=== PATIENT | male | born 1930 | race Caucasian/White ===

== ENCOUNTER 2018-03-17 10:05 | Emergency (ER) | payer MEDICARE, MEDICAID ==
--- NOTE | 2018-03-17 11:18 | C.PDOC ---
History Of Present Illness [id number] male presents to ED with complaints of new onset hematuria that began last night associated with increased frequency. Denies pelvic pain, nausea , or vomiting. Patient has history of TURP. Patient states he was started with Dr. Hare on cardura 4/5 but was unable to tolerate it. NEW ONSET HEMATURIA SINCE LAST NIGHT. INCR FREQ. DENIES PELVIC PAIN, NV FEVER. HO TURP. PS WAS STARTED ON CARDURA 4/5 BUT UNABLE TO TOLERATE IT. PS DR ANANYA HARE EXAM MILD DIST NONTOXIC ABD +GROSS HEMATURIA REMAIDNER NEG Time Seen by Provider: 03/17/18 10:51 Chief Complaint (Nursing): Male Genitourinary History Per: Patient History/Exam Limitations: no limitations Onset/Duration Of Symptoms: Days (1) Current Symptoms Are (Timing): Still Present Associated Symptoms: Urinary Symptoms. denies: Fever, Chills, Nausea, Vomiting Alleviating Factors: None Recent travel outside of the [place]: No Past Medical History Reviewed: Historical Data, Nursing Documentation, Vital Signs Vital Signs: Last Vital Signs Temp 98.4 F 03/17/18 15:53 Pulse 72 03/17/18 15:53 Resp 20 03/17/18 15:53 BP 116/72 03/17/18 15:53 Pulse Ox 98 03/17/18 15:53 - Medical History PMH: Arthritis, Benign Prostatic Hyperplasia, HTN Surgical History: No Surg Hx Family History: States: Unknown Family Hx - Social History Hx Tobacco Use: No Hx Alcohol Use: No Hx Substance Use: No - Immunization History Hx Tetanus Toxoid Vaccination: No Hx Influenza Vaccination: No Hx Pneumococcal Vaccination: No Review Of Systems Constitutional: Negative for: Fever, Chills Gastrointestinal: Negative for: Nausea, Vomiting Genitourinary: Positive for: Frequency, Hematuria Neurological: Negative for: Weakness, Numbness Physical Exam - Physical Exam Appears: Non-toxic, No Acute Distress Skin: Warm, Dry Eye(s): bilateral: Normal Inspection Oral Mucosa: Moist Chest: Symmetrical, No Tenderness Cardiovascular: Rhythm Regular Gastrointestinal/Abdominal: Soft, No Tenderness, Distention (Mild ), Other ( Positive gross hematuria ) Neurological/Psych: Oriented x3, Normal Speech, Normal Cognition ED Course And Treatment O2 Sat by Pulse Oximetry: 97 (RA) Pulse Ox Interpretation: Normal - Physician Consult Information Time Consulting Physician Contacted: 12:15 Physician Contacted: Diogo Hare Outcome Of Conversation: AWARE OF ER FINDINGS. MARINE CRABT[place] DC Medical Decision Making Medical Decision Making: Ordered Urine culture and Urinalysis. Disposition Counseled Patient/Family Regarding: Studies Performed, Diagnosis, Need For Followup, Rx Given - Disposition Referrals: Diogo Hare MD [Staff Provider] - Disposition: HOME/ ROUTINE Disposition Time: 16:00 Condition: IMPROVED Prescriptions: Cefuroxime Axetil [Cefuroxime] 500 mg PO BID #20 tablet Instructions: Blood in the Urine (Hematuria), Adult (DC) Forms: [employer] (Wolof) Print Language: MALIAN - Clinical Impression Clinical Impression: Hematuria - Scribe Statement The provider has reviewed the documentation as recorded by the Scribmeredith Mike All medical record entries made by the Esteribmeredith were at my direction and personally dictated by me. I have reviewed the chart and agree that the record accurately reflects my personal performance of the history, physical exam, medical decision making, and the department course for this patient. I have also personally directed, reviewed, and agree with the discharge instructions and disposition.
[2018-03-17 11:48] LABS: URINE BACTERIA RARE (<OCC); URINE BILIRUBIN NEGATIVE (NEGATIVE); URINE BLOOD 2+ (NEGATIVE); URINE GLUCOSE (UA) 1+ mg/dL (Normal); URINE LEUKOCYTE ESTERASE 2+ Leu/uL (Negative); URINE PROTEIN 2+ mg/dL (NEGATIVE); URINE UROBILINOGEN NORMAL mg/dL (0.2-1.0)
[2018-03-17 11:50] LABS: URINE CLARITY SLIGHT-CLOUDY (Clear); URINE COLOR Red (YELLOW)
[2018-03-17] MEDS ORDERED: cefTRIAXone (Rocephin) 250 mg Inj IM STA (12:18)
[2018-03-17 15:54] VITALS: BP 116/72; PULSE 72; RESP 20; TEMP 98.4
[2018-03-17 16:01] VITALS: O2SAT 97
== END 2018-03-17 16:18 | disposition home or self-care (01) ==
LOC: C.ER 10:05
DX: R31.9 Hematuria, unspecified (principal)
CPT/HCPCS: 81001; 87086; 96372; 99285; J0696